=== PATIENT | female | born 1935 | race Caucasian/White ===

== ENCOUNTER 2017-02-04 17:27 | Emergency (ER) | payer MEDICARE ==
--- NOTE | 2017-02-04 17:37 | ER Document Report ---
ED Medical Screen (RME) - General Stated Complaint: LEFT SHOULDER INJURY Mode of Arrival: Ambulatory Information source: Patient Notes: Patient presents emergency department with left shoulder and left elbow pain after falling. Denies hitting her head. She took one hydrocodone before coming to the ER. I have greeted and performed a rapid initial assessment of this patient. A comprehensive ED assessment and evaluation of the patient, analysis of test results and completion of the medical decision making process will be conducted by additional ED providers. TRAVEL OUTSIDE OF THE [place] IN LAST 30 DAYS: No - Related Data Allergies/Adverse Reactions: Sulfa (Sulfonamide Antibiotics) Allergy (Verified 03/02/15 14:41) Hives Past Medical History - Past Medical History Cardiac Medical History: Reports: Hx Coronary Artery Disease, Hx Hypercholesterolemia, Hx Hypertension - medicated Denies: Hx Heart Attack Pulmonary Medical History: Denies: Hx Asthma - SOB at times , Hx Bronchitis, Hx COPD, Hx Pneumonia Neurological Medical History: Denies: Hx Cerebrovascular Accident, Hx Seizures Endocrine Medical History: Reports: Hx Diabetes Mellitus Type 2 GI Medical History: Denies: Hx Hepatitis, Hx Hiatal Hernia, Hx Ulcer Musculoskeltal Medical History: Reports Hx Arthritis Infectious Medical History: Denies: Hx Hepatitis Past Surgical History: Reports: Hx Hysterectomy, Hx Orthopedic Surgery - R Knee , Bilat Carpel Tunnel, Hx Tonsillectomy. Denies: Hx Mastectomy, Hx Open Heart Surgery, Hx Pacemaker - Immunizations Hx Diphtheria, Pertussis, Tetanus Vaccination: No
[2017-02-04] MEDS ORDERED: OXYCODONE-ACETAMINOPHEN 5-325 MG TABLET PO ONE (19:34)
--- NOTE | 2017-02-04 19:37 | ER Document Report ---
ED Fall - General Chief Complaint: Arm Pain Stated Complaint: LEFT SHOULDER INJURY Mode of Arrival: Ambulatory Information source: Patient Notes: Patient is an 81-year-old female that comes emergency department for chief complaint of fall, she states she was walking through a doorway when she tripped on a step and fell forward, she states the majority of her weight landed on her left arm and shoulder area, she reports pain to those areas, she denies neck pain, denies head injury, she denies blood thinner use. She denies left hip pain, abdominal pain, chest pain. TRAVEL OUTSIDE OF THE [place] IN LAST 30 DAYS: No - Related data Allergies/Adverse Reactions: Sulfa (Sulfonamide Antibiotics) Allergy (Verified 02/04/17 17:38) Hives Past Medical History - General Information source: Patient - Social History Smoking Status: Never Smoker Chew tobacco use (# tins/day): No Frequency of alcohol use: None Drug Abuse: None Lives with: Family Family History: Reviewed & Not Pertinent Patient has suicidal ideation: No Patient has homicidal ideation: No - Past Medical History Cardiac Medical History: Reports: Hx Coronary Artery Disease, Hx Hypercholesterolemia, Hx Hypertension - medicated Denies: Hx Heart Attack Pulmonary Medical History: Denies: Hx Bronchitis, Hx COPD, Hx Pneumonia Comment Only: Hx Asthma - SOB at times Neurological Medical History: Denies: Hx Cerebrovascular Accident, Hx Seizures Endocrine Medical History: Reports: Hx Diabetes Mellitus Type 2 Renal/ Medical History: Denies: Hx Peritoneal Dialysis GI Medical History: Denies: Hx Hepatitis, Hx Hiatal Hernia, Hx Ulcer Musculoskeltal Medical History: Reports Hx Arthritis Infectious Medical History: Denies: Hx Hepatitis Past Surgical History: Reports: Hx Hysterectomy, Hx Orthopedic Surgery - R Knee , Bilat Carpel Tunnel, Hx Tonsillectomy. Denies: Hx Mastectomy, Hx Open Heart Surgery, Hx Pacemaker - Immunizations Hx Diphtheria, Pertussis, Tetanus Vaccination: No Hx Pneumococcal Vaccination: 11/27/09 Review of Systems - Review of Systems Constitutional: No symptoms reported EENT: No symptoms reported Cardiovascular: No symptoms reported Respiratory: No symptoms reported Gastrointestinal: No symptoms reported Genitourinary: No symptoms reported Female Genitourinary: No symptoms reported Musculoskeletal: See HPI Skin: No symptoms reported Hematologic/Lymphatic: No symptoms reported Neurological/Psychological: No symptoms reported Physical Exam - Vital signs Vitals: Temp Pulse Resp BP Pulse Ox 97.6 F 78 18 193/86 H 93 02/04/17 17:36 02/04/17 17:36 02/04/17 17:36 02/04/17 17:36 02/04/17 17:36 Interpretation: Normal - General General appearance: Appears well, Alert - HEENT Head: Normocephalic, Atraumatic Eyes: Normal Pupils: PERRL - Respiratory Respiratory status: No respiratory distress Chest status: Nontender. No: Tender Breath sounds: Normal Chest palpation: Normal - Cardiovascular Rhythm: Regular Heart sounds: Normal auscultation Murmur: No - Abdominal Inspection: Normal Distension: No distension Bowel sounds: Normal Tenderness: Nontender. No: Tender, Guarding Organomegaly: No organomegaly - Back Back: Normal, Nontender. No: Tender - Normal cervical, thoracic, lumbar exam, no saddle anesthesia, patient moves lower extremities without difficulty, right upper extremity moves without difficulty, patient has tender movement of the left upper extremity related to her injury. - Extremities General upper extremity: Other - Tender at the left humeral head and extending down to the left elbow, no swelling, range of motion is present although painful , normal strength and neurovascular exam General lower extremity: Normal inspection, Nontender, Normal color, Normal ROM , Normal temperature, Normal weight bearing. No: Derek's sign - Neurological Neuro grossly intact: Yes Cognition: Normal Orientation: AAOx4 [place] Coma Scale Eye Opening: Spontaneous Patrick Coma Scale Verbal: Oriented Patrick Coma Scale Motor: Obeys Commands [place] Coma Scale Total: 15 Speech: Normal Motor strength normal: LUE, RUE, LLE, RLE Sensory: Normal - Psychological Associated symptoms: Normal affect, Normal mood - Skin Skin Temperature: Warm Skin Moisture: Dry Skin Color: Normal Course - Re-evaluation Re-evalutation: Imaging of the areas of the shoulder, humerus and elbow in question shows osteopenia but no fracture. Patient is definitely tender over the humerus on exam, however she has no swelling, normal distal neurovascular exam. She requests a sling. CT of the head was reviewed although patient denies any neck or head pain, denies injury to the head. Patient neurologically intact, alert and oriented. Provided with a sling, pain medication, discussed follow-up with her provider, discussed return precautions, patient and significant other state understanding and agreement. - Vital Signs Vital signs: Temp Pulse Resp BP Pulse Ox 97.4 F 72 12 158/58 H 95 02/04/17 20:27 02/04/17 20:27 02/04/17 20:27 02/04/17 20:27 02/04/17 20:27 Discharge - Discharge Clinical Impression: Left arm pain Fall Qualifiers: Encounter type: initial encounter Qualified Code(s): W19.XXXA - Unspecified fall, initial encounter Left shoulder pain Qualifiers: Chronicity: acute Qualified Code(s): M25.512 - Pain in left shoulder Condition: Stable Disposition: HOME, SELF-CARE Additional Instructions: Imaging does not show any fracture or dislocation. You'll be sore, rest, wear the sling for comfort, take the arm out of the sling regularly to perform range of motion to prevent stiffening, take the Percocet if needed for pain, take the stool softener daily if you are taking the Percocet. Follow-up with your primary care provider within the next 3 days or so. Return to emergency department for any concerning or worsening symptoms. Prescriptions: Docusate Sodium [Colace 100 mg Capsule] 100 mg PO DAILY #30 capsule Oxycodone HCl/Acetaminophen [Percocet 5-325 mg Tablet] 1 tab PO Q4H PRN #12 tablet PRN Reason: Forms: Elevated Blood Pressure Referrals: LUCIE WATKINS MD [Primary Care Provider] - Follow up as needed
[2017-02-04 23:00] VITALS: BP 158/58
== END 2017-02-04 20:27 | disposition home or self-care (01) ==
LOC: ER 17:27
DX: M25.512 Pain in left shoulder (principal); W01.0XXA Fall on same level from slipping, tripping and stumbling without subsequent striking against object, initial encounter; I25.10 Atherosclerotic heart disease of native coronary artery without angina pectoris; E78.00 Pure hypercholesterolemia, unspecified; I10 Essential (primary) hypertension; E11.9 Type 2 diabetes mellitus without complications; Z90.710 Acquired absence of both cervix and uterus; Z88.2 Allergy status to sulfonamides; Z95.0 Presence of cardiac pacemaker
CPT/HCPCS: 99284; 73080; 73030; 70450; A9270

== ENCOUNTER → 2018-04-27 | Outpatient (CLI) | payer MEDICARE ==
[~2018-04-27] MED LIST: LIDOCAINE 0.5% INJ-PF (5 MG/ML) 50 ML SDV ONE
--- NOTE | 2018-04-27 12:28 | RADIOLOGY REPORT (SQ) ---
EXAM DESCRIPTION: VENOUS UNILATERAL LOWER COMPLETED DATE/TIME: 04/27/2018 12:16 pm REASON FOR STUDY: LLE PAIN M79.605 PAIN IN LEFT LEG COMPARISON: None. TECHNIQUE: Dynamic and static pierre scale and color images acquired of the left leg venous system. Se lected spectral images acquired with additional compression and augmentation maneuvers. The contralat eral common femoral vein and saphenofemoral junction were also imaged. Images stored on PACS. LIMITATIONS: None. FINDINGS: LEFT COMMON FEMORAL: Normal phasicity, compression and augmentation. No visualized echogenic material on g ray scale. No defects on color images. FEMORAL: Normal compression and augmentation. No visualized echogenic material on pierre scale. No defe cts on color images. POPLITEAL: Normal compression, augmentation. No visualized echogenic material on pierre scale. No defec ts on color images. CALF VESSELS: Posterior tibial and peroneal veins are difficult to visualize. Color flow demonstrate s no gross clot. GSV and SSV: Normal compression, augmentation. No visualized echogenic material on pierre scale. No def ects on color images. ANY DEEP VENOUS INSUFFICIENCY: Not evaluated. ANY EVIDENCE OF POPLITEAL CYST: No. OTHER: No other significant finding. RIGHT COMMON FEMORAL VEIN AND SAPHENOFEMORAL JUNCTION: Normal phasicity, compression and augmentation. No visualized echogenic material on pierre scale. No de fects on color images. IMPRESSION: NO EVIDENCE OF DVT OR SVT IN THE LEFT LEG. TECHNICAL DOCUMENTATION: JOB ID: [id number] [employer]- All Rights Reserved Reading location - IP/workstation name: [email or web address]
== END ==
LOC: SP 10:25
PROVIDERS: ATTEND Physician Assistant
DX: M79.605 Pain in left leg (principal)
CPT/HCPCS: 93971; J3490

== ENCOUNTER → 2018-06-26 | Outpatient (CLI) | payer MEDICARE ==
[2018-06-26 12:35] LABS: HEMATOCRIT 28.9 % (36.0-47.0); HEMOGLOBIN 9.6 g/dL (12.0-15.5); MEAN CORPUSCULAR HEMOGLOBIN 37.7 pg (27.0-33.4); MEAN CORPUSCULAR HGB CONC 33.1 g/dL (32.0-36.0); PLATELET COUNT 320 10^3/uL (150-450); RED BLOOD COUNT 2.53 10^6/uL (3.72-5.28); RED CELL DISTRIBUTION WIDTH 21.2 % (11.5-14.0); WHITE BLOOD COUNT 7.3 10^3/uL (4.0-10.5)
[2018-06-26 12:41] LABS: MEAN CORPUSCULAR VOLUME 114 fl (80-97)
[2018-06-26 12:59] LABS: ALANINE AMINOTRANSFERASE 18 U/L (9-52); ALBUMIN 3.7 g/dL (3.5-5.0); ALKALINE PHOSPHATASE 42 U/L (38-126); ANION GAP 13 (5-19); ASPARTATE AMINO TRANSFERASE 21 U/L (14-36); BILIRUBIN,DIRECT 0.4 mg/dL (0.0-0.4); BILIRUBIN,TOTAL 0.5 mg/dL (0.2-1.3); BLOOD UREA NITROGEN 22 mg/dL (7-20); C-REACTIVE PROTEIN 9.5 mg/L (<10.0); CALCIUM 9.8 mg/dL (8.4-10.2); CARBON DIOXIDE 26 mmol/L (22-30); CHLORIDE 103 mmol/L (98-107); GLUCOSE 202 mg/dL (75-110); POTASSIUM 4.6 mmol/L (3.6-5.0); SODIUM 141.6 mmol/L (137-145); TOTAL PROTEIN 6.3 g/dL (6.3-8.2)
[2018-06-26 13:14] LABS: ERYTHROCYTE SEDIMENTATION RATE 26 mm/hr (0-30)
[2018-06-26 13:33] LABS: ABSOLUTE LYMPHOCYTES# (MANUAL) 1.1 10^3/uL (0.5-4.7); ABSOLUTE MONOCYTES # (MANUAL) 0.5 10^3/uL (0.1-1.4); ABSOLUTE NEUTROPHILS# (MANUAL) 5.6 10^3/uL (1.7-8.2); BASOPHILS % (MANUAL) 0 % (0-2); EOSINOPHILS % (MANUAL) 1 % (0-6); HYPERSEGMENTED NEUTROPHILS PRESENT; LYMPHOCYTES % (MANUAL) 15 % (13-45); MONOCYTES % (MANUAL) 7 % (3-13); SEGMENTED NEUTROPHILS % (MAN) 77 % (42-78); TOTAL CELLS COUNTED 100
[2018-06-26 13:34] LABS: HYPOCHROMASIA SLIGHT; OVALOCYTES 2+; PLATELET COMMENT ADEQUATE; POIKILOCYTOSIS 2+; POLYCHROMASIA SLIGHT
[2018-06-27 12:26] LABS: PATH REVIEW PATHOLOGIST REVIEWED
== END ==
LOC: OD 11:01
PROVIDERS: ATTEND Nurse Practitioner
DX: E11.621 Type 2 diabetes mellitus with foot ulcer (principal); L97.222 Non-pressure chronic ulcer of left calf with fat layer exposed
CPT/HCPCS: 36415; 80053; 83036; 85025; 85652; 86140

== ENCOUNTER 2018-06-28 11:29 | Emergency (ER) | payer MEDICARE ==
--- NOTE | 2018-06-28 12:02 | ER Document Report ---
ED Medical Screen (RME) - General Chief Complaint: Leg Swelling Stated Complaint: LEG PAIN/SWELLING Time Seen by Provider: 06/28/18 12:00 Mode of Arrival: Wheelchair Information source: Patient, Relative - pt had U/S done earlier today to r/o DVT. She is followed by wound clinic for Stasis ulcers of legs TRAVEL OUTSIDE OF THE [place] IN LAST 30 DAYS: No - Related Data Allergies/Adverse Reactions: Sulfa (Sulfonamide Antibiotics) Allergy (Verified 06/28/18 11:30) Hives Past Medical History - Social History Frequency of alcohol use: None Drug Abuse: None - Past Medical History Cardiac Medical History: Reports: Hx Coronary Artery Disease, Hx Hypercholesterolemia, Hx Hypertension - medicated Denies: Hx Heart Attack Pulmonary Medical History: Denies: Hx Bronchitis, Hx COPD, Hx Pneumonia Comment Only: Hx Asthma - SOB at times Neurological Medical History: Denies: Hx Cerebrovascular Accident, Hx Seizures Endocrine Medical History: Reports: Hx Diabetes Mellitus Type 2 Renal/ Medical History: Denies: Hx Peritoneal Dialysis GI Medical History: Denies: Hx Hepatitis, Hx Hiatal Hernia, Hx Ulcer Musculoskeltal Medical History: Reports Hx Arthritis Infectious Medical History: Denies: Hx Hepatitis Past Surgical History: Reports: Hx Hysterectomy, Hx Orthopedic Surgery - R Knee , Bilat Carpel Tunnel, Hx Tonsillectomy. Denies: Hx Mastectomy, Hx Open Heart Surgery, Hx Pacemaker - Immunizations Hx Diphtheria, Pertussis, Tetanus Vaccination: No Physical Exam - Vital signs Vitals: Temp Pulse Resp BP Pulse Ox 98.5 F 75 16 133/57 H 95 06/28/18 11:36 06/28/18 11:36 06/28/18 11:36 06/28/18 11:36 06/28/18 11:36 Course - Vital Signs Vital signs: Temp Pulse Resp BP Pulse Ox 98.5 F 75 16 133/57 H 95 06/28/18 11:36 06/28/18 11:36 06/28/18 11:36 06/28/18 11:36 06/28/18 11:36 Doctor's Discharge - Discharge Referrals: ZEN MACK MID LEVEL PROVIDER [Primary Care Provider] - Follow up as needed
--- NOTE | 2018-06-28 13:37 | ER Document Report ---
ED Extremity Problem, Lower - General Chief Complaint: Leg Swelling Stated Complaint: LEG PAIN/SWELLING Time Seen by Provider: 06/28/18 12:00 Mode of Arrival: Wheelchair Notes: Patient had an outpatient Doppler of her right leg this morning which showed a DVT of her right popliteal vein. This test was ordered as an outpatient by the wound care clinic where the patient was seen a couple of days ago for her first visit. She has chronic excoriations and scabs of the lower portion of both lower legs, the left worse than the right. Patient is not a very good historian , and is not really sure why she had these venous Doppler studies done today. Patient says she is not having any chest pains. Has chronic shortness of breath and has been diagnosed with COPD. Denies worsening difficulty breathing or shortness of breath. Denies any recent chest congestion or cough or pulmonary illness. Has not had any fever. TRAVEL OUTSIDE OF THE [place] IN LAST 30 DAYS: No - Related Data Allergies/Adverse Reactions: Sulfa (Sulfonamide Antibiotics) Allergy (Verified 06/28/18 11:30) Hives Past Medical History - General Information source: Patient, Relative - pt had U/S done earlier today to r/o DVT. She is followed by wound clinic for Stasis ulcers of legs - Social History Smoking Status: Never Smoker Frequency of alcohol use: None Drug Abuse: None Family History: Reviewed & Not Pertinent Patient has suicidal ideation: No Patient has homicidal ideation: No - Past Medical History Cardiac Medical History: Reports: Hx Coronary Artery Disease, Hx Hypercholesterolemia, Hx Hypertension - medicated Denies: Hx Heart Attack Pulmonary Medical History: Reports: Hx COPD Comment Only: Hx Asthma - SOB at times Endocrine Medical History: Reports: Hx Diabetes Mellitus Type 1, Hx Diabetes Mellitus Type 2 Musculoskeletal Medical History: Reports Hx Arthritis Past Surgical History: Reports: Hx Hysterectomy, Hx Orthopedic Surgery - R Knee replacement, Bilat Carpel Tunnel, Hx Tonsillectomy - Immunizations Hx Diphtheria, Pertussis, Tetanus Vaccination: No Hx Pneumococcal Vaccination: 11/27/09 Review of Systems - Review of Systems Notes: REVIEW OF SYSTEMS: CONSTITUTIONAL : Denies fever. EENT: Denies eye, ear, nose or mouth or throat pain or other symptoms. CARDIOVASCULAR: Denies chest pain. RESPIRATORY: Denies cough, chest congestion, but has some chronic shortness of breath. GASTROINTESTINAL: Denies abdominal pain or nausea, vomiting, or diarrhea. GENITOURINARY: Denies difficulty or painful urinating, urinary frequency, blood in urine. MUSCULOSKELETAL: Denies back or neck pain. Denies joint pain or swelling. SKIN: Denies rash or skin lesions. NEUROLOGICAL: Denies LOC or altered mental status. Denies headache. Denies sensory loss or motor deficits. ALL OTHER SYSTEMS REVIEWED AND NEGATIVE. Physical Exam - Vital signs Vitals: Temp Pulse Resp BP Pulse Ox 98.5 F 75 16 133/57 H 95 06/28/18 11:36 06/28/18 11:36 06/28/18 11:36 06/28/18 11:36 06/28/18 11:36 Interpretation: Normal - Notes Notes: PHYSICAL EXAMINATION: GENERAL: Well-appearing, in no acute distress. HEAD: Atraumatic, normocephalic. EYES: Pupils equal round and reactive to light, extraocular movements intact. ENT: oropharynx clear without exudates. Moist mucous membranes. NECK: Normal range of motion, supple. LUNGS: Breath sounds clear and equal bilaterally. HEART: Regular rate and rhythm without murmurs. ABDOMEN: Soft, nontender. No guarding or rebound. No masses. BACK: No tenderness throughout entire back. EXTREMITIES: Normal range of motion without pain. Negative Homans. Patient has swelling in the left popliteal area and slightly below which feels like the texture of a lipoma. She does not have any definitive swelling or tenderness, etc. in the right popliteal where the DVT is supposed to be located. NEUROLOGICAL: Normal speech, normal gait. Normal sensory, motor, and reflex exams. Awake, alert, and oriented x3. Cranial nerves normal. PSYCH: Normal mood, normal affect. SKIN: Warm, dry, no rashes. Patient has chronic excoriations of the lower extremities, from mid ortiz to ankles, bilaterally. One large thin eschar was located anteriorly on the left which was easy to remove by me in the ED. Course - Re-evaluation Re-evalutation: 06/28/18 19:41 Discussed with hospitalist dish up person who says that this patient can be treated as an outpatient starting on Eliquis 10 mg daily. Spoke with Dr. Anders Choe, patient's primary care provider, who was unaware that the patient was getting the venous Doppler studies done. We discussed care and agree that we will try to treat patient as an outpatient with Eliquis. Dr. Choe pointed out the patient does have a history of anemia with a hemoglobin of 8-9. He recommended that we check some labs and make sure the patient was not significantly anemic before treating her as an outpatient. Discharge planning has provided information to a service to hopefully pay for the patient's initial Eliquis medication. Also, a follow-up appointment has been made for this patient Monday. - Vital Signs Vital signs: Temp Pulse Resp BP Pulse Ox 98.5 F 78 18 155/76 H 95 06/28/18 11:36 06/28/18 16:52 06/28/18 16:52 06/28/18 16:52 06/28/18 16:52 - Laboratory Result Diagrams: 06/28/18 14:39 06/28/18 14:39 Laboratory results interpreted by me: 06/28/18 14:39 RBC 2.60 L Hgb 9.7 L Hct 29.2 L MCV 112 H MCH 37.2 H RDW 20.0 H - EKG Interpretation by Me EKG shows normal: Sinus rhythm Rate: Normal Rhythm: NSR Discharge - Discharge Clinical Impression: Deep venous thrombosis of right popliteal vein Condition: Stable Disposition: HOME, SELF-CARE Additional Instructions: DVT Outpatient Treatment You have deep venous thrombosis (DVT) in your leg. DVT or phlebitis is blood clots within the large deep veins. This causes redness, warmth, and tenderness of the involved area. This problem is more likely to affect people who smoke, take estrogen, have had recent surgery, have been immobile, have had previous DVT, or who have serious underlying health conditions. Keep your legs elevated. A heating pad, 20 minutes every two hours, can help with leg pain. For now, keep walking to a minimum. Don't do any physical work, lifting, or exercise. If the doctor has recommended medication for you, it 's important that you take it. You will be started on a blood-thinning medication. Follow-up is important. Your medication needs to be monitored. Call or return at once if you cough blood or vomit blood, pass black or bloody stool, or have any other unusual bleeding. DVT can cause serious complications. The clots can damage the valves in the veins, leading to chronic pain and swelling. If a clot breaks loose and floats upstream, it can stick in the lungs. A clot in the lungs, called pulmonary embolism, can be life-threatening. Call the doctor or return if you develop increasing leg pain and swelling, leg discoloration, fever, chest pain, or shortness of breath. You have an appointment to be seen by your doctor, Dr.Mark Choe at 3:15 pm on July 02. Take the newly prescribed medication which is a blood thinner as directed. FOLLOW-UP CARE: If you have been referred to a physician for follow-up care, call the physician s office for an appointment as you were instructed or within the next two days. If you experience worsening or a significant change in your symptoms, notify the physician immediately or return to the Emergency Department at any time for re-evaluation. Referrals: ZEN MACK NP [ALLIED HEALTH PROFESSIONAL] - Follow up as needed
[2018-06-28 14:54] LABS: INTERNATIONAL RATION (INR) 0.95; PROTHROMBIN TIME 13.1 SEC (11.4-15.4)
[2018-06-28 15:04] LABS: ABSOLUTE BASOPHILS # (AUTO) 0.1 10^3/uL (0.0-0.2); ABSOLUTE LYMPHOCYTES (AUTO) 1.3 10^3/uL (0.5-4.7); ABSOLUTE MONOCYTES (AUTO) 0.5 10^3/uL (0.1-1.4); ABSOLUTE NEUT (AUTO) 5.7 10^3/uL (1.7-8.2); BASOPHILS % (AUTO) 0.7 % (0-2); EOSINOPHILS % (AUTO) 0.6 % (0-6); HEMATOCRIT 29.2 % (36.0-47.0); HEMOGLOBIN 9.7 g/dL (12.0-15.5); LYMPHOCYTES % (AUTO) 17.3 % (13-45); MEAN CORPUSCULAR HEMOGLOBIN 37.2 pg (27.0-33.4); MEAN CORPUSCULAR HGB CONC 33.1 g/dL (32.0-36.0); MEAN CORPUSCULAR VOLUME 112 fl (80-97); MONOCYTES % (AUTO) 6.4 % (3-13); PLATELET COUNT 270 10^3/uL (150-450); TOTAL CELLS COUNTED % (AUTO) 100 %; WHITE BLOOD COUNT 7.6 10^3/uL (4.0-10.5)
[2018-06-28 15:12] LABS: ALANINE AMINOTRANSFERASE 23 U/L (9-52); ALBUMIN 3.7 g/dL (3.5-5.0); ALKALINE PHOSPHATASE 38 U/L (38-126); ANION GAP 11 (5-19); ASPARTATE AMINO TRANSFERASE 21 U/L (14-36); BILIRUBIN,DIRECT 0.3 mg/dL (0.0-0.4); BILIRUBIN,TOTAL 0.5 mg/dL (0.2-1.3); BLOOD UREA NITROGEN 18 mg/dL (7-20); CALCIUM 10.1 mg/dL (8.4-10.2); CARBON DIOXIDE 26 mmol/L (22-30); CHLORIDE 104 mmol/L (98-107); GLUCOSE 91 mg/dL (75-110); POTASSIUM 4.4 mmol/L (3.6-5.0); SODIUM 140.9 mmol/L (137-145); TOTAL PROTEIN 6.5 g/dL (6.3-8.2)
[2018-06-28 15:27] LABS: HYPERSEGMENTED NEUTROPHILS PRESENT
[2018-06-28 15:28] LABS: OVALOCYTES 2+; PLATELET COMMENT ADEQUATE; POIKILOCYTOSIS 2+; POLYCHROMASIA SLIGHT; TEAR DROP CELLS SLIGHT
[2018-06-28] MEDS ORDERED: APIXABAN 5 MG TABLET PO ONE (16:02)
[2018-06-28 16:59] VITALS: BP 155/76
--- NOTE | 2018-06-28 22:36 | EKG REPORT ---
SEVERITY:- BORDERLINE ECG - SINUS RHYTHM BORDERLINE T ABNORMALITIES, ANTERIOR LEADS : Confirmed by: Suresh Parks 28-Jun-2018 22:35:43
== END 2018-06-28 16:59 | disposition home or self-care (01) ==
LOC: ER 11:29
DX: I82.431 Acute embolism and thrombosis of right popliteal vein (principal); S80.812A Abrasion, left lower leg, initial encounter; S80.811A Abrasion, right lower leg, initial encounter; X58.XXXA Exposure to other specified factors, initial encounter; J44.9 Chronic obstructive pulmonary disease, unspecified; I25.10 Atherosclerotic heart disease of native coronary artery without angina pectoris; I10 Essential (primary) hypertension; E11.9 Type 2 diabetes mellitus without complications; Z88.2 Allergy status to sulfonamides; Z86.2 Personal history of diseases of the blood and blood-forming organs and certain disorders involving the immune mechanism
CPT/HCPCS: 93005; 99284; 36415; 85025; 85610; 80053; 93010; A9270; 93925; 93970

== ENCOUNTER → 2018-06-28 | Outpatient (CLI) | payer MEDICARE ==
--- NOTE | 2018-06-28 16:02 | XCELERA REPORT ---
[address] [address] Lower Extremity Venous Evaluation Name: NORMA SETH Age: 82 yrs Gender: Female : 1935 Patient Status: Outpatient Patient Location: Study Date: 06/28/2018 10:35 AM Procedure: A bilateral duplex scan of the lower extremity veins was performed. The evaluation included responses to compression and other maneuvers with patient in the supine and standing positions to assess venous insufficiency. Reason For Study: ULCER Ordering Physician: ZEN MACK Performed By: Hoang Green Right Sided Venous Evaluation Abnormal vessel filling lack of compression and no Colour flow in the Popliteal. complex by norwood scale. Findings otherwise normal down to the infrageniculate veins. Left Sided Venous Evaluation Deep venous system evaluation shows patent veins with no obstruction or significant reflux identified. Sapheno Femoral junction: 1.4 second reflux. Femoral vein reflux: none. Greater Saphenous vein, Proximal thigh: reflux: 2.3 seconds, 2.9 mm diameter. Greater Saphenous vein, Mid thigh: reflux: 2.2 seconds.5.2 mm. Greater Saphenous vein, Distal thigh: reflux: 1.6 seconds.5.6 mm. Greater Saphenous vein, below knee: not imaged due to bandaging. No significant Perforators identified. Critical Findings Discussed with Dr Wisdom in the ER. Interpretation Summary DVT , sub acute to chronic in the right Popliteal vein. Left lower extremity reflux as noted. : ZEN MACK > Tone Lu
--- NOTE | 2018-06-28 16:06 | XCELERA REPORT ---
[address] [address] Lower Extremity Arterial Evaluation Name: NORMA SETH Age: 82 yrs Gender: Female : 1935 Patient Status: Outpatient Patient Location: Study Date: 06/28/2018 10:00 AM Procedure: A color flow and duplex scan of the lower extremity arteries was performed bilaterally with velocity and waveform anaylsis. Ankle brachial indicies performed. Reason For Study: ULCER Ordering Physician: ZEN MACK Performed By: Hoang Green Measurements and Calculations Right Left PIE FILLING MIXER PSV 128.1 126.4 cm/sec Prox PFA PSV -99.3 87.7 cm/sec Prox SFA PSV 94.9 115.7 cm/sec Mid SFA PSV -115.0 -101.8 cm/sec Dist SFA PSV -93.0 -97.0 cm/sec Prox Pop A PSV 76.6 91.5 cm/sec Dist STEPHANIE PSV 54.2 233.8 cm/sec Dist CASSANDRA ARCHITECT PSV 115.7 -110.9 cm/sec Antelmo Pedis PSV 14.5 32.9 cm/sec Right Side Arterial Evaluation Normal velocity and triphasic waveforms noted from the Common Femoral artery to the Posterior Tibial. Biphasic with preserved velocity in the Anterior Tibial, diminution in the Dorsalis Pedis . 0-19% stenosis at the AnteriorTibial artery. Ankle Brachial index is 1.08. Left Side Arterial Evaluation Normal velocity and triphasic waveforms noted from the Common Femoral artery to the Anterior Tibial. Biphasic with preserved velocity in the Posterior Tibial, diminution in the Dorsalis Pedis . 0-19% stenosis at the Posterior artery. Ankle Brachial index not obtained due to presence of wound. Interpretation Summary Mild hemodynamically significant lesions in the bilateral lower extremities, on duplex imaging, at rest. : ZEN MACK > Tone Lu
== END ==
LOC: SP 09:25
PROVIDERS: ATTEND Nurse Practitioner
DX: L97.222 Non-pressure chronic ulcer of left calf with fat layer exposed (principal)
CPT/HCPCS: 93925; 93970

== ENCOUNTER 2020-11-29 09:08 | Emergency (ER) | payer MEDICARE ==
[2020-11-29 10:20] LABS: APPEARANCE,URINE CLEAR; BILIRUBIN,URINE NEGATIVE (NEGATIVE); COLOR,URINE STRAW; GLUCOSE, URINE NEGATIVE (NEGATIVE); KETONES,URINE NEGATIVE (NEGATIVE); LEUKOCYTE ESTERASE,URINE NEGATIVE (NEGATIVE); NITRITE,URINE NEGATIVE (NEGATIVE); PROTEIN,URINE 30 mg/dL (NEGATIVE); UROBILINOGEN,URINE NEGATIVE mg/dL (<2.0)
[2020-11-29] MEDS ORDERED: MAG HYDROX/AL HYDROX/SIMETH SUSP 30 ML UDCUP PO ONE (10:23)
[2020-11-29] MEDS ORDERED: LIDOCAINE 2% VISCOUS SOLN 15 ML UDCUP PO ONE (10:24)
--- NOTE | 2020-11-29 10:43 | ER Document Report ---
ED General - General Chief Complaint: Difficulty Swallowing Stated Complaint: FOREIGN BODY IN THROAT Time Seen by Provider: 11/29/20 09:40 TRAVEL OUTSIDE OF THE [place] IN LAST 30 DAYS: No - HPI Notes: Chief complaint: Choking episode History of present illness: 85-year-old female followed by Dr. Anders Choe in [place], [place] with a history of hypertension, diabetes mellitus type 2, diabetic peripheral neuropathy and osteoarthritis transported here via EMS after experiencing a "choking episode" while eating breakfast this morning. There was no loss of consciousness. Patient initially had difficulty swallowing. She vomited several times and now feels that her swallowing is basically back to normal. She denies any current respiratory symptoms. She says that she has a history of intermittent shortness of breath at baseline. She is a non-smoker. She has a history of what sounds like reflux but is not currently on any prescription treatment for this and says she has not discussed this with her doctor. She denies any known past history of esophageal stricture or endoscopy. - Related Data Allergies/Adverse Reactions: Sulfa (Sulfonamide Antibiotics) Allergy (Verified 11/29/20 09:24) Hives Past Medical History - General Information source: Patient, Relative, [facility] Records - Social History Smoking Status: Never Smoker Chew tobacco use (# tins/day): No Frequency of alcohol use: None Drug Abuse: None Lives with: Family Family History: Reviewed & Not Pertinent - Past Medical History Cardiac Medical History: Reports: Hx Coronary Artery Disease, Hx Hypercholesterolemia, Hx Hypertension - medicated Denies: Hx Heart Attack Pulmonary Medical History: Reports: Hx COPD Denies: Hx Bronchitis, Hx Pneumonia Comment Only: Hx Asthma - SOB at times Neurological Medical History: Denies: Hx Cerebrovascular Accident, Hx Seizures Endocrine Medical History: Reports: Hx Diabetes Mellitus Type 1, Hx Diabetes Mellitus Type 2 Renal/ Medical History: Denies: Hx Peritoneal Dialysis GI Medical History: Denies: Hx Hepatitis, Hx Hiatal Hernia, Hx Ulcer Musculoskeletal Medical History: Reports Hx Arthritis Infectious Medical History: Denies: Hx Hepatitis Past Surgical History: Reports: Hx Hysterectomy, Hx Orthopedic Surgery - R Knee replacement, Bilat Carpel Tunnel, Hx Tonsillectomy. Denies: Hx Mastectomy, Hx Open Heart Surgery, Hx Pacemaker - Immunizations Hx Diphtheria, Pertussis, Tetanus Vaccination: No Hx Pneumococcal Vaccination: 11/27/09 Review of Systems - Review of Systems Notes: Constitutional: Negative for fever. HENT: Negative for sore throat. Eyes: Negative for visual changes. Cardiovascular: Negative for chest pain. Respiratory: As per HPI. Gastrointestinal: As per HPI. Genitourinary: Negative for dysuria. Musculoskeletal: Negative for back pain. Skin: Negative for rash. Neurological: Negative for headaches, weakness or numbness. 10 point ROS negative except as marked above and in HPI. Physical Exam - Vital signs Vitals: Resp BP Pulse Ox 20 186/76 H 97 11/29/20 09:19 11/29/20 09:19 11/29/20 09:19 - Notes Notes: GENERAL: Elderly female appearing in no acute distress. SKIN: Good turgor no rashes. HEAD: Normocephalic atraumatic. EYES: Bilateral arcus senilis. PERRLA. EOMI. Conjunctivae and sclerae clear. EARS: CANALS AND TMS CLEAR. NOSE: CLEAR. MOUTH: Moist mucosa. Good dentition. No stridor or edema. No drooling. NECK: Supple. No masses or thyromegaly. No adenopathy. Carotids 2+ without bruits. No JVD. BACK: Symmetrical without tenderness. CHEST: Respirations unlabored. Breath sounds clear and symmetrical. HEART: Regular rhythm. No murmur gallop or rub. ABDOMEN: Soft nontender without masses, organomegaly or rebound. Bowel sounds normally active. No bruits. GENITALIA: Deferred. EXTREMITIES: Moderate degenerative changes interphalangeal joints of both hands. Healed surgical scars anterior aspect of both knees. No edema. No calf tenderness. Cap refill less than 1.5 seconds. Dorsalis pedis and posterior tibial pulses 3+ and symmetrical. NEUROLOGICAL: GCS 15. Alert and oriented x3. Fluent speech. Cranial nerves II through XII intact. Sensorimotor and cerebellar normal. Normal tone. PSYCHIATRIC: Appropriate affect. Course - Re-evaluation Re-evalutation: 11/29/20 12:13 This is an elderly lady with a history of GERD who apparently became "choked" while eating breakfast this morning and initially had difficulty swallowing. She also vomited several times prior to arrival here by EMS. She has been fine since she is coming here. Her oxygenation is normal. Her blood pressure is mildly elevated but she has a history of hypertension. EKG showed no acute changes. Troponin is normal. Chest x-ray shows no infiltrates. She was given a GI cocktail subsequently tolerated p.o. fluids without difficulty. I feel she stable for outpatient follow-up with PMD. I am going to start her on Protonix and ask her to see her PMD this week. Findings, clinical impression and plan of treatment have been discussed with patient/family. Understanding of current findings and recommendations has been acknowledged by them and there is agreement regarding disposition and follow-up. - Vital Signs Vital signs: Temp Pulse Resp BP Pulse Ox 20 186/76 H 97 11/29/20 09:19 11/29/20 09:19 11/29/20 09:19 - Laboratory Results Result Diagrams: 11/29/20 10:48 11/29/20 10:48 Laboratory Results Interpreted: 11/29/20 11/29/20 11/29/20 09:48 10:48 10:48 RBC 3.19 L Hgb 11.3 L Hct 33.4 L MCV 105 H MCH 35.3 H RDW 14.8 H Sodium 136.8 L Glucose 166 H Urine Protein 30 H Critical Laboratory Results Reviewed: Yes Attending or Supervising Physician who Reviewed Labs: EMANI BUSTAMANTE - Radiology Results Critical Radiology Results Reviewed: No Critical Results - EKG Interpretation by Me Additional EKG results interpreted by me: 11/29/20 12:18 Twelve-lead EKG reviewed by me contemporaneously: 1051 hrs. Indication for study: Choking Rhythm: Normal sinus Rate: 61 Intervals: Normal intervals QRS axis: -[address]/T wave changes: Nonspecific Comparison with prior tracing: No significant change compared with prior study 06/28/2018 Interpretation: Nonspecific ST changes Discharge - Discharge Clinical Impression: Gastroesophageal reflux Qualifiers: Esophagitis presence: esophagitis presence not specified Qualified Code(s): K21.9 - Gastro-esophageal reflux disease without esophagitis Condition: Stable Disposition: HOME, SELF-CARE Additional Instructions: Reflux Disease (GERD) Gastro-Esophageal Reflux Disease (GERD) is caused by stomach acid refluxing back up into the esophagus. The valve at the end of the esophagus may be weak. This is common in persons with a hiatal hernia. GERD symptoms can include in digestion, chest pain, heartburn, or food "sticking." Certain foods, alcohol, and aspirin can make GERD worse. Treatment depends on the severity. Usually, antacids or acid-suppressing medicines are used. When the esophagus is acutely inflamed, the physician will often prescribe membrane-protective drugs such as Carafate. Some patients benefit from medication such as Reglan that tightens the valve at the top of the stomach. Avoid those foods that bring on your symptoms. For many people, these foods are coffee, chocolate, onions, garlic, and carbonated drinks. Don't use alcohol, aspirin, caffeine, or tobacco. Don't eat late at night -- within 4 hours of bedtime. Don't over-eat. If necessary, elevate the head of your bed about 4 inches so that stomach acid will not roll up into your esophagus. Call the doctor if you develop severe chest pain, inability to swallow fluids, fever, or worsening symptoms. Take prescribed medication as directed. Return here as needed for new or worsening symptoms: Shortness of breath Pain that is worsening or unimproved Uncontrolled vomiting High fever or shaking chills Overall worsening Prescriptions: Pantoprazole Sodium [Protonix [address] Tablet] 40 mg PO QHS 30 Days #30 tablet.
--- NOTE | 2020-11-29 10:44 | RADIOLOGY REPORT (SQ) ---
EXAM DESCRIPTION: CHEST 2 VIEWS IMAGES COMPLETED DATE/TIME: 11/29/2020 10:35 am REASON FOR STUDY: aspiration COMPARISON: None. NUMBER OF VIEWS: Two views. TECHNIQUE: Frontal and lateral radiographic views of the chest acquired. LIMITATIONS: None. FINDINGS: LUNGS AND PLEURA: No opacities, masses or pneumothorax. No pleural effusion. MEDIASTINUM AND HILAR STRUCTURES: No masses or contour abnormality. HEART AND VASCULAR STRUCTURES: Cardiac enlargement. Vascular congestion. BONES: No acute findings. HARDWARE: None in the chest. OTHER: No other significant finding. IMPRESSION: CARDIAC ENLARGEMENT. VASCULAR CONGESTION. TECHNICAL DOCUMENTATION: JOB ID: [id number] 2010 [employer]- All Rights Reserved Reading location - IP/workstation name: [email or web address]
[2020-11-29 11:01] LABS: ABSOLUTE EOSINOPHILS # (AUTO) 0.1 10^3/uL (0.0-0.6); ABSOLUTE LYMPHOCYTES (AUTO) 0.8 10^3/uL (0.5-4.7); ABSOLUTE MONOCYTES (AUTO) 0.5 10^3/uL (0.1-1.4); ABSOLUTE NEUT (AUTO) 3.7 10^3/uL (1.7-8.2); BASOPHILS % (AUTO) 0.8 % (0-2); EOSINOPHILS % (AUTO) 1.9 % (0-6); HEMATOCRIT 33.4 % (36.0-47.0); HEMOGLOBIN 11.3 g/dL (12.0-15.5); LYMPHOCYTES % (AUTO) 15.4 % (13-45); MEAN CORPUSCULAR HEMOGLOBIN 35.3 pg (27.0-33.4); MEAN CORPUSCULAR HGB CONC 33.8 g/dL (32.0-36.0); MEAN CORPUSCULAR VOLUME 105 fl (80-97); MONOCYTES % (AUTO) 10.3 % (3-13); PLATELET COUNT 259 10^3/uL (150-450); RED BLOOD COUNT 3.19 10^6/uL (3.72-5.28); RED CELL DISTRIBUTION WIDTH 14.8 % (11.5-14.0); SEGMENTED NEUTROPHILS % (AUTO) 71.6 % (42-78); TOTAL CELLS COUNTED % (AUTO) 100 %; WHITE BLOOD COUNT 5.2 10^3/uL (4.0-10.5)
[2020-11-29 11:17] LABS: ALBUMIN 3.6 g/dL (3.5-5.0); ALKALINE PHOSPHATASE 57 U/L (38-126); ANION GAP 5 (5-19); ASPARTATE AMINO TRANSFERASE 24 U/L (14-36); BILIRUBIN,DIRECT 0.3 mg/dL (0.0-0.4); BILIRUBIN,TOTAL 0.4 mg/dL (0.2-1.3); BLOOD UREA NITROGEN 16 mg/dL (7-20); CALCIUM 9.7 mg/dL (8.4-10.2); CARBON DIOXIDE 29 mmol/L (22-30); CHLORIDE 103 mmol/L (98-107); GLUCOSE 166 mg/dL (75-110); POTASSIUM 4.5 mmol/L (3.6-5.0); TOTAL PROTEIN 6.8 g/dL (6.3-8.2)
[2020-11-29 12:47] VITALS: BP 184/96
--- NOTE | 2020-11-29 17:59 | EKG REPORT ---
SEVERITY:- ABNORMAL ECG - SINUS RHYTHM LEFT VENTRICULAR HYPERTROPHY BORDERLINE T ABNORMALITIES, INFERIOR LEADS : Confirmed by: Nathaniel Ceballos MD 29-Nov-2020 17:57:46
== END 2020-11-29 12:30 | disposition home or self-care (01) ==
LOC: ER 09:08
DX: K21.9 Gastro-esophageal reflux disease without esophagitis (principal); R13.10 Dysphagia, unspecified; R09.89 Other specified symptoms and signs involving the circulatory and respiratory systems; I10 Essential (primary) hypertension; E11.42 Type 2 diabetes mellitus with diabetic polyneuropathy; Z88.2 Allergy status to sulfonamides; I25.10 Atherosclerotic heart disease of native coronary artery without angina pectoris
CPT/HCPCS: 93005; 99285; 36415; 85025; 80053; 81001; 84484; 71046; 93010; J3490; A9270